=== PATIENT | male | born 1940 | race Caucasian/White ===

== ENCOUNTER 2021-08-12 19:10 | Inpatient (IN) | payer MEDICARE, OTHER ==
[~2021-08-12] VITALS: Ht 180.3 cm; Wt 103.1 kg
[~2021-08-12 19:10] MED LIST: ASPIRIN EC81 MG PO; CARVEDILOL12.5 MG PO; CRESTOR PO; EPLERENONE PO; FINASTERIDE5 MG PO; L-ARGININE500 MG PO; LISINOPRIL20 MG PO; MULTAQ PO; OSTERA TABLET1 EACH PO; PREVACID PO; VIT C PO
[2021-08-12 19:32] LABS: BASOPHILS % 0.2 % (0.0-1.0); EOSINOPHILS % 0.2 % (0.0-6.0); HEMATOCRIT 45.4 % (38.2-49.6); HEMOGLOBIN 14.9 g/dL (14.0-18.0); LYMPHOCYTES # (AUTO) 0.8 (1.0-3.2); MEAN CORPUSCULAR HEMOGLOBIN 30.9 pg (28-32); MEAN CORPUSCULAR HGB CONC 32.8 g/dL (31-35); MEAN CORPUSCULAR VOLUME 94.2 fL (81-99); MONOCYTES # (AUTO) 0.5 (0.2-0.8); MONOCYTES % 9.5 % (4.4-11.3); NEUTROPHILS % 74.9 % (38.7-80.0); PLATELET COUNT 152 x10e3/uL (140-360); RED BLOOD COUNT 4.82 x10e6/uL (4.3-5.7); RED CELL DISTRIBUTION WIDTH 12.3 % (11.7-14.4)
[2021-08-12 19:58] LABS: ALBUMIN 3.3 g/dL (3.5-5.0); ALBUMIN/GLOBULIN RATIO 0.8 (0.8-2.0); ANION GAP 14.3 mmol/L (8-16); CREATININE, SERUM 1.28 mg/dL (0.72-1.25); POTASSIUM 4.3 mmol/L (3.5-5.1)
[2021-08-12 20:05] LABS: CREATINE KINASE MB 1.2 ng/mL (0-5.0)
[2021-08-12] MEDS ORDERED: ONDANSETRON HCL INJ 2MG/ML 2ML 2 MG/ML VIAL IV PRN (22:45)
[2021-08-13] VITALS (10 sets, daily range): BP systolic 105–120; BP diastolic 69–83
[2021-08-13] MEDS ORDERED: ELIQUIS5 MG PO (01:56)
[2021-08-13] MEDS ORDERED: LASIX20 MG PO (01:56)
[2021-08-13] MEDS ORDERED: NEXIUM20 MG PO (01:56)
[2021-08-13] MEDS: SODIUM CHLORIDE 0.9% 1000ML 1,000 ML IV SCH ×2 (02:05→06:22)
[2021-08-13 02:54] LABS: CREATINE KINASE MB 1.1 ng/mL (0-5.0)
[2021-08-13] MEDS: CYCLOBENZAPRINE HCL 10 MG TAB PO PRN (03:15)
[2021-08-13 08:46] LABS: BASOPHILS % 0.2 % (0.0-1.0); EOSINOPHILS % 0.4 % (0.0-6.0); HEMATOCRIT 43.1 % (38.2-49.6); HEMOGLOBIN 14.4 g/dL (14.0-18.0); LYMPHOCYTES # (AUTO) 0.8 (1.0-3.2); LYMPHOCYTES % 17.4 % (18.0-39.1); MEAN CORPUSCULAR HEMOGLOBIN 30.6 pg (28-32); MEAN CORPUSCULAR HGB CONC 33.4 g/dL (31-35); MEAN CORPUSCULAR VOLUME 91.7 fL (81-99); MONOCYTES # (AUTO) 0.4 (0.2-0.8); MONOCYTES % 8.4 % (4.4-11.3); NEUTROPHILS # (AUTO) 3.3 (2.1-6.9); NEUTROPHILS % 73.2 % (38.7-80.0); PLATELET COUNT 143 x10e3/uL (140-360); RED CELL DISTRIBUTION WIDTH 12.1 % (11.7-14.4)
[2021-08-13 09:00] LABS: ALBUMIN/GLOBULIN RATIO 0.9 (0.8-2.0); CALCIUM 8.8 mg/dL (8.4-10.2); CREATININE, SERUM 0.97 mg/dL (0.72-1.25)
[2021-08-13 09:23] LABS: CREATINE KINASE MB 0.9 ng/mL (0-5.0)
[2021-08-13] MEDS ORDERED: REMDESIVIR 100MG 200 MG in SODIUM CHLORIDE 0.9% 100 ML IV ONE (10:00)
[2021-08-13] MEDS: LORATADINE 10 MG TAB PO SCH (10:52)
[2021-08-13] MEDS: PANTOPRAZOLE SOD 40 MG TABEC PO SCH (10:52)
[2021-08-13] MEDS: CARVEDILOL 12.5 MG TAB PO SCH ×2 (10:52→17:01)
[2021-08-13] MEDS: CEFTRIAXONE 1 GM in SODIUM CHLORIDE 0.9% 50ML 50 ML IV SCH (10:52)
[2021-08-13] MEDS: FINASTERIDE 5 MG TAB PO SCH (10:52)
[2021-08-13] MEDS: ASCORBIC ACID 500 MG TAB PO SCH ×2 (10:52→17:01)
[2021-08-13] MEDS: ZINC SULFATE 50 MG CAP PO SCH (10:52)
[2021-08-13] MEDS: DEXAMETHASONE SOD PHOS 10 MG/1 ML VIAL IV SCH (10:52)
[2021-08-13] MEDS: CHOLECALCIFEROL 1,000 UNIT TAB PO SCH (10:52)
[2021-08-13] MEDS: BENZONATATE 100 MG CAP PO SCH ×3 (10:52→21:50)
[2021-08-13] MEDS: ENOXAPARIN SOD INJ 40 MG/0.4 ML SYR SC SCH (10:52)
[2021-08-13] MEDS ORDERED: SERTRALINE HCL 100 MG TAB PO ONE (21:45)
[2021-08-14 04:35] VITALS: BP 129/92
[2021-08-14 05:30] LABS: HEMATOCRIT 44.8 % (38.2-49.6); HEMOGLOBIN 14.5 g/dL (14.0-18.0); LYMPHOCYTES % 9.8 % (18.0-39.1); MEAN CORPUSCULAR HEMOGLOBIN 30.5 pg (28-32); MEAN CORPUSCULAR HGB CONC 32.4 g/dL (31-35); MEAN CORPUSCULAR VOLUME 94.3 fL (81-99); NEUTROPHILS % 84.6 % (38.7-80.0); PLATELET COUNT 177 x10e3/uL (140-360); RED BLOOD COUNT 4.75 x10e6/uL (4.3-5.7); RED CELL DISTRIBUTION WIDTH 12.2 % (11.7-14.4)
[2021-08-14 05:31] LABS: LYMPHOCYTES # (AUTO) 0.6 (1.0-3.2); MONOCYTES # (AUTO) 0.3 (0.2-0.8); MONOCYTES % 5.3 % (4.4-11.3); NEUTROPHILS # (AUTO) 4.9 (2.1-6.9)
[2021-08-14 06:33] LABS: ALBUMIN 3.1 g/dL (3.5-5.0); ALBUMIN/GLOBULIN RATIO 0.8 (0.8-2.0); ANION GAP 14.2 mmol/L (8-16); CALCIUM 9.3 mg/dL (8.4-10.2); CREATININE, SERUM 1.02 mg/dL (0.72-1.25); POTASSIUM 4.2 mmol/L (3.5-5.1)
[2021-08-14 08:00] VITALS: BP 124/86
[2021-08-14 08:17] VITALS: BP 124/86
[2021-08-14] MEDS: Morphine 4mg Syringe 4 MG/ML INJ IV PRN ×3 (08:40→18:10)
[2021-08-14] MEDS: ZINC SULFATE 50 MG CAP PO SCH (09:14)
[2021-08-14] MEDS: ASCORBIC ACID 500 MG TAB PO SCH ×2 (09:14→16:55)
[2021-08-14] MEDS: BENZONATATE 100 MG CAP PO SCH ×3 (09:14→20:47)
[2021-08-14] MEDS: DEXAMETHASONE SOD PHOS 10 MG/1 ML VIAL IV SCH (09:14)
[2021-08-14] MEDS: CHOLECALCIFEROL 1,000 UNIT TAB PO SCH (09:14)
[2021-08-14] MEDS: SERTRALINE HCL 100 MG TAB PO SCH (09:14)
[2021-08-14] MEDS: LORATADINE 10 MG TAB PO SCH (09:14)
[2021-08-14] MEDS: ENOXAPARIN SOD INJ 40 MG/0.4 ML SYR SC SCH (09:14)
[2021-08-14] MEDS: CEFTRIAXONE 1 GM in SODIUM CHLORIDE 0.9% 50ML 50 ML IV SCH (09:14)
[2021-08-14] MEDS: CARVEDILOL 12.5 MG TAB PO SCH ×2 (09:14→16:55)
[2021-08-14] MEDS: PANTOPRAZOLE SOD 40 MG TABEC PO SCH (09:14)
[2021-08-14] MEDS: FINASTERIDE 5 MG TAB PO SCH (09:14)
[2021-08-14] MEDS: CYCLOBENZAPRINE HCL 10 MG TAB PO PRN (09:15)
[2021-08-14] MEDS: GUAIFENESIN/DEXTROMETHORPHAN LIQD 5 ML UDC NG PRN (09:15)
[2021-08-14 11:56] VITALS: BP 116/90
[2021-08-14] MEDS ORDERED: REMDESIVIR 100MG 100 MG in SODIUM CHLORIDE 0.9% 100 ML IV SCH (14:00)
[2021-08-14 16:07] VITALS: BP 120/75
[2021-08-14 20:00] VITALS: BP 127/86
[2021-08-15] VITALS: BP 117/72
[2021-08-15 04:00] VITALS: BP 121/61
[2021-08-15] MEDS ORDERED: Cholecalciferol PO (06:47)
[2021-08-15] MEDS ORDERED: CEPHALEXIN500 MG PO (06:47)
[2021-08-15] MEDS ORDERED: ASCORBIC ACID500 MG PO (06:47)
[2021-08-15] MEDS ORDERED: Benzonatate PO (06:47)
[2021-08-15] MEDS ORDERED: PREDNISONE20 MG PO (06:47)
[2021-08-15] MEDS ORDERED: Zinc Sulfate PO (06:47)
[2021-08-15] MEDS ORDERED: LORATADINE10 MG PO (06:47)
[2021-08-15] MEDS ORDERED: ZITHROMAX500 MG PO (06:47)
[2021-08-15] MEDS: GUAIFENESIN/DEXTROMETHORPHAN LIQD 5 ML UDC NG PRN (07:50)
[2021-08-15] MEDS: CYCLOBENZAPRINE HCL 10 MG TAB PO PRN (07:50)
[2021-08-15] MEDS: Morphine 4mg Syringe 4 MG/ML INJ IV PRN (07:50)
[2021-08-15 07:51] VITALS: BP 131/97
[2021-08-15 08:00] VITALS: BP 131/87
[2021-08-15] MEDS ORDERED: AZITHROMYCIN 250 MG TAB PO SCH (08:00)
[2021-08-15] MEDS: CHOLECALCIFEROL 1,000 UNIT TAB PO SCH (08:07)
[2021-08-15] MEDS: SERTRALINE HCL 100 MG TAB PO SCH (08:07)
[2021-08-15] MEDS: DEXAMETHASONE SOD PHOS 10 MG/1 ML VIAL IV SCH (08:07)
[2021-08-15] MEDS: FINASTERIDE 5 MG TAB PO SCH (08:07)
[2021-08-15] MEDS: ASCORBIC ACID 500 MG TAB PO SCH (08:07)
[2021-08-15] MEDS: CARVEDILOL 12.5 MG TAB PO SCH (08:07)
[2021-08-15] MEDS: PANTOPRAZOLE SOD 40 MG TABEC PO SCH (08:07)
[2021-08-15] MEDS: CEFTRIAXONE 1 GM in SODIUM CHLORIDE 0.9% 50ML 50 ML IV SCH (08:07)
[2021-08-15] MEDS: BENZONATATE 100 MG CAP PO SCH (08:07)
[2021-08-15] MEDS: ZINC SULFATE 50 MG CAP PO SCH (08:07)
[2021-08-15] MEDS: ENOXAPARIN SOD INJ 40 MG/0.4 ML SYR SC SCH (08:07)
[2021-08-15] MEDS: LORATADINE 10 MG TAB PO SCH (08:07)
[2021-08-15] MEDS ORDERED: ONDANSETRON HCL 4 MG ORAL DISINTEGRATING TAB PO PRN (12:15)
[2021-08-15 12:21] VITALS: BP 106/73
== END 2021-08-15 13:06 | disposition home or self-care (01) | DRG 177 ==
LOC: ER 19:15 → ERHOLD 23:09 → IMCU 08-13 00:42
PROVIDERS: ADMIT Internal Medicine; ATTEND Internal Medicine
PROC: 8E0ZXY6 Isolation (ICD-10-PCS; principal; 2021-08-12)
PROC: XW033E5 Introduction of Remdesivir Anti-infective into Peripheral Vein, Percutaneous Approach, New Technology Group 5 (ICD-10-PCS; 2021-08-13)
PROC: 3E03329 Introduction of Other Anti-infective into Peripheral Vein, Percutaneous Approach (ICD-10-PCS; 2021-08-13)
DX: U07.1 COVID-19 (principal); J12.82 Pneumonia due to coronavirus disease 2019; J96.01 Acute respiratory failure with hypoxia; J15.9 Unspecified bacterial pneumonia; S06.0X9A Concussion with loss of consciousness of unspecified duration, initial encounter; J90 Pleural effusion, not elsewhere classified; N17.9 Acute kidney failure, unspecified; I48.20 Chronic atrial fibrillation, unspecified; E66.01 Morbid (severe) obesity due to excess calories; Z68.31 Body mass index [BMI] 31.0-31.9, adult; W01.10XA Fall on same level from slipping, tripping and stumbling with subsequent striking against unspecified object, initial encounter; R41.81 Age-related cognitive decline; Z79.01 Long term (current) use of anticoagulants; Z88.2 Allergy status to sulfonamides; N40.0 Benign prostatic hyperplasia without lower urinary tract symptoms
CPT/HCPCS: 36415; 70450; 70551; 71045; 72125; 72128; 72131; 80053; 82550; 82553; 84484; 85025; 93005; 94799; 96360; 99284; J0248; J0456; J0696; J1100; J1650; J2270; J2405; J7030; J7050; U0002